=== PATIENT | female | born 1960 | race African-American/Black ===

== ENCOUNTER 2022-02-14 07:32 | Outpatient (CLI) | payer MEDICARE, MEDICAID | END 2022-02-14 07:33 | disposition critical access hospital (66) | LOC: EMS 07:32 | DX: T82.838A Hemorrhage due to vascular prosthetic devices, implants and grafts, initial encounter (principal); I95.9 Hypotension, unspecified; R40.0 Somnolence | CPT/HCPCS: A0425; A0429 ==

== ENCOUNTER 2022-02-14 07:49 | Emergency (ER) | payer MEDICARE, MEDICAID ==
[2022-02-14 08:06] LABS: BASOPHILS % (AUTO) 0.4 %; EOSINOPHILS # (AUTO) 0.1 10^3/uL (0.0-0.7); EOSINOPHILS % (AUTO) 2.1 %; HCT - HEMATOCRIT 30.9 % (37.0-47.0); HGB - HEMOGLOBIN 9.5 g/dL (12.0-16.0); LYMPHOCYTES # (AUTO) 3.6 10^3/uL (1.5-3.5); LYMPHOCYTES % (AUTO) 52.4 %; MEAN CORPUSCULAR HEMOGLOBIN 30.2 pg (27.0-31.0); MEAN CORPUSCULAR HGB CONC 30.7 g/dL (32.0-36.0); MEAN CORPUSCULAR VOLUME 98.1 fL (81.0-99.0); MEAN PLATELET VOLUME 10.4 fL (7.9-10.8); MONOCYTES # (AUTO) 0.4 10^3/uL (0.0-1.0); NEUTROPHILS # (AUTO) 2.6 10^3/uL (1.5-6.6); NEUTROPHILS % (AUTO) 37.6 %; PLT - PLATELET COUNT 248 10^3/uL (130-450); RED BLOOD COUNT 3.15 10^6/uL (4.20-5.40); RED CELL DISTRIBUTION WIDTH 13.2 % (12.0-15.0); WHITE BLOOD COUNT 6.8 x10^3/uL (4.8-10.8)
[2022-02-14 08:19] LABS: ALBUMIN 2.9 g/dL (3.2-5.5); ALBUMIN/GLOBULIN RATIO 0.8 (1.0-2.2); BILIRUBIN,TOTAL 0.9 mg/dL (0.2-1.0); CALCIUM 9.2 mg/dL (8.5-10.3); POTASSIUM 4.3 mmol/L (3.5-5.0); TOTAL PROTEIN 6.4 g/dL (6.7-8.2)
[2022-02-14 08:36] LABS: PT - PROTHROMBIN TIME 11.5 secs (9.9-12.6)
--- NOTE | 2022-02-14 08:49 | ED Physician Documentation ---
History of Present Illness - Stated complaint Stated Complaint: BLEEDING - Chief complaint Chief Complaint: Laceration - History obtained from History obtained from: Patient, Family (Patient's daughter), EMS - Additonal information Additional information: Patient is a 61-year-old, Creole speaking, dialysis patient presenting for evaluation of bleeding from her left upper extremity fistula site. It is unclear as to when the bleeding started. A family member found her unresponsive with blood shooting out.electric spot welder had applied a tourniquet and EMS applied a pressure dressing.Patient was awake and responsive but whenEMS was unable to establish IV or to get a glucose reading. Per her daughter, she is a dialysis patient on Saturday, and Saturday and went yesterday without issue. She has not recently been ill or complaining of anything.She has recently moved to the area from [place] and has a spa director (Lucy Fair) Through [facility]. She has not seen a vascular surgeon. Per her daughter, they were supposed to see a vascular surgeon to have the fistula changed to a graft but have not done so yet. Review of Systems Constitutional: denies: Fever Nose: denies: Congestion Cardiac: denies: Chest pain / pressure Respiratory: denies: Dyspnea GI: reports: Nausea. denies: Abdominal Pain Musculoskeletal: denies: Back pain Neurologic: reports: Generalized weakness, Syncope. denies: Head injury PD PAST MEDICAL HISTORY - Allergies Allergies/Adverse Reactions: Allergies Allergy/AdvReac Type Severity Reaction Status Date / Time cough syrup Allergy Rash Uncoded 02/14/22 08:30 PD ED PE NORMAL - General General: No acute distress, Well developed/nourished - HEENT HEENT: Atraumatic - Neck Neck: Supple, no meningeal sign - Cardiac Cardiac: RRR, Strong equal pulses - Respiratory Respiratory: No respiratory distress, Clear bilaterally - Abdomen Abdomen: Soft, Non tender, Non distended - Derm Derm: Warm and dry - Extremities Extremities: Other (Fistula to left upper extremity, no bruit or thrill, pulsatile bleeding) - Neuro Neuro: No motor deficit Results - Vitals Vitals: Vital Signs - 24 hr 02/14/22 02/14/22 02/14/22 07:55 08:28 09:28 Temperature 36.4 C L Heart Rate 105 H 82 86 Respiratory 22 27 H 23 Rate Blood Pressure 106/71 124/74 135/74 H O2 Saturation 98 99 99 02/14/22 02/14/22 02/14/22 10:00 10:30 11:00 Temperature Heart Rate 84 85 84 Respiratory 19 19 20 Rate Blood Pressure 146/79 H 146/79 H 135/91 H O2 Saturation 97 99 97 Oxygen O2 Source Room air - EKG (time done) 0819 Rate: Rate (enter#) (100) Rhythm: Sinus tachycardia Intervals: No: Prolonged QT (QTC 449) Ischemia: T wave inversion (Lateral leads) Compare to prior EKG: Old EKG unavailable - Labs Labs: Laboratory Tests 02/14/22 02/14/22 02/14/22 07:56 07:56 07:56 WBC 6.8 RBC 3.15 L Hgb 9.5 L Hct 30.9 L MCV 98.1 MCH 30.2 MCHC 30.7 L RDW 13.2 Plt Count 248 MPV 10.4 Neut # (Auto) 2.6 Lymph # (Auto) 3.6 H Howell # (Auto) 0.4 Eos # (Auto) 0.1 Baso # (Auto) 0.0 Absolute Nucleated RBC 0.00 Nucleated RBC % 0.0 PT INR Sodium 138 Potassium 4.3 Chloride 97 L Carbon Dioxide 19 L Anion Gap 22.0 H BUN 47 H Creatinine 9.0 H* Estimated GFR (MDRD) 5 L Glucose 431 H POC Whole Bld Glucose Calcium 9.2 Total Bilirubin 0.9 AST 27 ALT 30 Alkaline Phosphatase 125 H Total Protein 6.4 L Albumin 2.9 L Globulin 3.5 Albumin/Globulin Ratio 0.8 L Blood Type A POSITIVE Blood Type Recheck Antibody Screen NEGATIVE 02/14/22 02/14/22 02/14/22 08:00 08:24 08:24 WBC RBC Hgb Hct MCV MCH MCHC RDW Plt Count MPV Neut # (Auto) Lymph # (Auto) Howell # (Auto) Eos # (Auto) Baso # (Auto) Absolute Nucleated RBC Nucleated RBC % PT 11.5 INR 1.0 Sodium Potassium Chloride Carbon Dioxide Anion Gap BUN Creatinine Estimated GFR (MDRD) Glucose POC Whole Bld Glucose 425 H Calcium Total Bilirubin AST ALT Alkaline Phosphatase Total Protein Albumin Globulin Albumin/Globulin Ratio Blood Type Blood Type Recheck A POSITIVE Antibody Screen 02/14/22 02/14/22 11:01 11:07 WBC RBC Hgb 9.0 L Hct 29.5 L MCV MCH MCHC RDW Plt Count MPV Neut # (Auto) Lymph # (Auto) Howell # (Auto) Eos # (Auto) Baso # (Auto) Absolute Nucleated RBC Nucleated RBC % PT INR Sodium Potassium Chloride Carbon Dioxide Anion Gap BUN Creatinine Estimated GFR (MDRD) Glucose POC Whole Bld Glucose 406 H Calcium Total Bilirubin AST ALT Alkaline Phosphatase Total Protein Albumin Globulin Albumin/Globulin Ratio Blood Type Blood Type Recheck Antibody Screen Procedures - Laceration (location) Left upper extremity fistula Length in cm: 0.5 Wound type: Irregular (Circular macerated area with pulsatile bleeding and oozing), Clean Wound preparation: Betadine Skin layer closure: Size #-0 - enter number (3), Sutures - enter # (3), Other (1 figure 8, 2 simple interrupted) Other: Patient tolerated well, No complications, Neurovascular intact PD MEDICAL DECISION MAKING - ED course Complexity details: reviewed results, re-evaluated patient, d/w patient, d/w family ED course: 844 - Undressed wound; no active bleeding. Dressing reapplied. No thrill/bruit. 0859 - D/W Dr. Fair (Nephro). Patient had been advised to get a fistulogram mon ths ago as her fistula has been problematic at dialysis with high pressures, Bleeding issues. Patient needs to have temporary dialysis catheter for dialysis tomorrow. 919 - Discussed with Chloé Martinez (IR). We do not have capabilities to place temporary dialysis catheters at [facility] due to no fluoroscopy. 1000 - D/W Dr. Fair. She will try calling the vascular lab at [facility] where she is working to see if they are able to accommodate the patient in having a temporary catheter placed today. She will call us back.She would not be able to work on this until her lunch hour. We will keep the patient n.p.o. 1101 - PULP MAKING PLANT OPERATOR Aaliyah from [facility] called back. They have made arrangements for patient to have a fistulogram and/or Tunneled dialysis catheter placement tomorrow. Patient will need to call IR at [facility] to find out the time. Phone number is [phone]. Departure - Departure Disposition: 01 Home, Self Care Clinical Impression: Hyperglycemia Dialysis AV fistula malfunction Qualifiers: Encounter type: initial encounter Qualified Code(s): T82.590A - Other mechanical complication of surgically created arteriovenous fistula, initial encounter Bleeding from dialysis shunt Qualifiers: Encounter type: initial encounter Qualified Code(s): T82.838A - Hemorrhage due to vascular prosthetic devices, implants and grafts, initial encounter Condition: Stable Instructions: ED Shunt Dialysis Fistula Bleeding Follow-Up: LUCY FAIR MD [Physician No Access] - Comments: You were evaluated for a bleeding problem from your fistula site. We were able to control the bleeding with 3 stitches and a dressing. However, I am concerned that the fistula is no longer working. I have spoken to your spa director (Dr. Lucy Fair) and they have arranged for you to have a fistulogram at [facility] tomorrow.You need to call [phone] to find out the time. It is very important to keep the appointment that you are given. Please keep the dressing on Until you are seen for follow-up. If you notice any signs of bl eeding or have any concerns please return to the emergency department. Your blood sugar was elevated and we did give you a small amount of insulin. Please make sure to continue to check your blood sugar today and take your medications as prescribed.
[2022-02-14] MEDS ORDERED: INSULIN NPH HUMAN 100 UNIT/1 ML 10 ML MDV SUBQ STA (09:39)
[2022-02-14] MEDS ORDERED: ONDANSETRON 4 MG/2 ML VIAL IVP STA (10:31)
[2022-02-14 11:05] LABS: HCT - HEMATOCRIT 29.5 % (37.0-47.0)
[2022-02-14] MEDS ORDERED: SODIUM CHLORIDE 0.9% 500 ML IV STA ×2 (12:05→13:01)
[2022-02-14 14:43] LABS: HCT - HEMATOCRIT 27.4 % (37.0-47.0); HGB - HEMOGLOBIN 8.4 g/dL (12.0-16.0)
--- NOTE | 2022-02-14 16:09 | ED Physician Documentation ---
ED Addendum - Addendum Addendum: ED note was signed prematurely in error. Pt Was set up for discharge after arrangements were made for fistulogram tomorrow. However she reported feeling dizzy upon standing. Nurse noted that she is orthostatic. Patient denies chest pain or shortness of breath. She did receive IV fluids with some improvement in her symptoms And was able to sit up (Which she was not able to do prior to the fluid bolus without feeling dizzy) but remained feeling orthostatic when she stood up. Her hemoglobin has gone from 9.5-8.4. I am unclear as to what her baseline is. However she clearly is orthostatic and only feeling symptoms when she stands up. I do think she has symptomatic anemia and would benefit from a blood transfusion. I have consented the patient through her daughter and she is agreeable to receiving 1 unit of blood. 02/14/22 17:49 Receiving transfusion, patient commented to RN that she was having stomach pain and back pain. I used the [employer] record center specialist through [facility] as daughter was unavailable to talk with the patient. She reports having some low back discomfort that seems to be worse when laying in a certain position. She has no significant tenderness on exam. She additionally reports having epigastric tenderness after eating. Will trial Tylenol and Pepcid.Patient otherwise appears to be tolerating blood transfusion well. Plan for discharge if patient is feeling improved after transfusion. Departure - Departure Disposition: 01 Home, Self Care Clinical Impression: Hyperglycemia, Symptomatic anemia Dialysis AV fistula malfunction Qualifiers: Encounter type: initial encounter Qualified Code(s): T82.590A - Other mechanical complication of surgically created arteriovenous fistula, initial encounter Bleeding from dialysis shunt Qualifiers: Encounter type: initial encounter Qualified Code(s): T82.838A - Hemorrhage due to vascular prosthetic devices, implants and grafts, initial encounter Condition: Stable Instructions: ED Shunt Dialysis Fistula Bleeding Follow-Up: LUCY FAIR MD [Physician No Access] - Comments: You were evaluated for a bleeding problem from your fistula site. We were able to control the bleeding with 3 stitches and a dressing. However, I am concerned that the fistula is no longer working. I have spoken to your physical plant employee (Dr. Lucy Fair) and they have arranged for you to have a fistulogram at [facility] tomorrow.You need to call [phone] to find out the time. It is very important to keep the appointment that you are given. Please keep the dressing on Until you are seen for follow-up. If you notice any signs of bleeding or have any concerns please return to the emergency department. Your blood sugar was elevated and we did give you a small amount of insulin. Please make sure to continue to check your blood sugar today and take your medications as prescribed. We also gave you a unit of blood as your blood counts were trending downward and you appear to be symptomatic from this anemia. Discharge Date/Time: 02/14/22 20:28
[2022-02-14] MEDS ORDERED: ACETAMINOPHEN 325 MG TABLET PO STA (17:48)
[2022-02-14] MEDS ORDERED: FAMOTIDINE 20 MG TABLET PO STA (17:49)
[2022-02-14 20:34] VITALS: BP 166/98
== END 2022-02-14 20:28 | disposition home or self-care (01) ==
LOC: ED 07:49
DX: T82.590A Other mechanical complication of surgically created arteriovenous fistula, initial encounter (principal); T82.838A Hemorrhage due to vascular prosthetic devices, implants and grafts, initial encounter; R73.9 Hyperglycemia, unspecified; R00.0 Tachycardia, unspecified; I95.1 Orthostatic hypotension; R10.13 Epigastric pain; D64.9 Anemia, unspecified
CPT/HCPCS: 12001; 36415; 36430; 80053; 85014; 85018; 85025; 85610; 86850; 86900; 86901; 86920; 93005; 96361; 96374; 99283; 99285; A9270; J1815; P9016

== ENCOUNTER 2022-10-05 15:17 | Outpatient (CLI) | payer MEDICARE, MEDICAID | END 2022-10-05 23:59 | disposition critical access hospital (66) | LOC: EMS 15:17 | DX: R56.9 Unspecified convulsions (principal); S09.90XA Unspecified injury of head, initial encounter; R11.10 Vomiting, unspecified; W18.39XA Other fall on same level, initial encounter; Y92.008 Other place in unspecified non-institutional (private) residence as the place of occurrence of the external cause | CPT/HCPCS: A0425; A0427 ==

== ENCOUNTER 2022-10-05 15:33 | Emergency (ER) | payer MEDICARE, MEDICAID ==
[2022-10-05] MEDS ORDERED: LORazepam 2 MG/ML VIAL IVP STA ×2 (15:37→16:08)
--- NOTE | 2022-10-05 15:40 | ED Physician Documentation ---
History of Present Illness - Stated complaint Stated Complaint: SEIZURE/HEAD INJ - Chief complaint Chief Complaint: Neuro - History obtained from History obtained from: EMS - History of Present Illness Timing: Today - Additonal information Additional information: Patient is a 62-year-old female with a history of diabetes and CHF. She is on dialysis. Has a left-sided AV fistula. EMS states that the family heard her fall at home and found her seizing on the floor. She has been seizing for approximately 40 minutes. EMS gave Versed 2 mg IM approximately 15 minutes ago. No other history is available. EMS states the patient is not on blood thinners. No prior history of seizures the EMS is aware of The patient has her usual dialysis care at [facility] in [place]. Her daughter arrived in the emergency department is able to give more history. She states that since last night her mother has been shaking. The altered mental status apparently occurred today just prior to EMS being called. Patient had dialysis yesterday. She is scheduled again tomorrow. The daughter states that the patient has not had any cough or congestion. No vomiting or diarrhea. She states that the patient does still make urine. Review of Systems Unable to obtain: Unresponsive PD PAST MEDICAL HISTORY - Past Medical History Past Medical History: Yes Cardiovascular: Congestive heart failure, Hypertension Endocrine/Autoimmune: Type 2 diabetes - Past Surgical History Past Surgical History: Yes Other past surgical history: AV fistula - Present Medications Home Medications: Ambulatory Orders Medication Instructions Recorded Confirmed NIFEdipine [Procardia Xl] 30 mg PO BID 02/14/22 02/14/22 cloNIDine [Catapres] 0.3 mg PO BID 02/14/22 02/14/22 hydrALAZINE [Apresoline] 25 mg PO BID 02/14/22 02/14/22 - Allergies Allergies/Adverse Reactions: Allergies Allergy/AdvReac Type Severity Reaction Status Date / Time cough syrup Allergy Rash Uncoded 10/05/22 15:38 - Living Situation Living Situation: reports: With family Living Arrangement: reports: At home - Social History Does the pt have substance abuse?: No - Family History Family history: reports: Non contributory PD ED PE NORMAL - Vitals Vital signs reviewed: Yes - General General: No acute distress, Well developed/nourished, Other (Drowsy, arousable but shaking) - HEENT HEENT: PERRL, Other (right frontal scalp hematoma) - Neck Neck: Supple, no meningeal sign, No bony TTP - Cardiac Cardiac: RRR, Other (port in R upper chest) - Respiratory Respiratory: Other (mild rhonchi B) - Abdomen Abdomen: Soft, Non tender, Non distended - Back Back: No spinal TTP - Derm Derm: Warm and dry - Extremities Extremities: No edema - Neuro Eye Opening: To Pain Motor: Withdraws to Pain Verbal: None GCS Score: 7 Results - Vitals Vitals: Vital Signs - 24 hr 10/05/22 10/05/22 10/05/22 15:38 15:44 16:14 Temperature 36.5 C 36.5 C Heart Rate 94 96 88 Respiratory 14 24 24 Rate Blood Pressure 160/100 H 180/110 H 200/110 H O2 Saturation 100 100 96 If not protocol 4 4 : Oxygen Flow, liters/minute 10/05/22 10/05/22 10/05/22 16:30 17:00 17:30 Temperature 38.8 C H Heart Rate 97 96 88 Respiratory 24 24 24 Rate Blood Pressure 200/120 H 160/120 H 200/110 H O2 Saturation 98 98 98 If not protocol 4 4 4 : Oxygen Flow, liters/minute 10/05/22 10/05/22 10/05/22 18:00 18:30 19:00 Temperature Heart Rate 88 100 120 H Respiratory 24 28 H 20 Rate Blood Pressure 200/120 H 200/110 H 200/110 H O2 Saturation 99 99 98 If not protocol 4 4 4 : Oxygen Flow, liters/minute 10/05/22 10/05/22 10/05/22 19:30 20:00 20:30 Temperature Heart Rate 100 110 H 130 H Respiratory 28 H 24 28 H Rate Blood Pressure 200/100 H 170/88 H 209/116 H O2 Saturation 98 97 97 If not protocol 4 4 4 : Oxygen Flow, liters/minute 10/05/22 10/05/22 10/05/22 21:00 21:30 22:00 Temperature 38.8 C H Heart Rate 137 H 138 H 138 H Respiratory 37 H 35 H 33 H Rate Blood Pressure 213/114 H 207/122 H 218/125 H O2 Saturation 98 97 96 If not protocol 4 4 : Oxygen Flow, liters/minute 10/05/22 22:17 Temperature Heart Rate 114 H Respiratory 21 Rate Blood Pressure 179/98 H O2 Saturation 97 If not protocol 4 : Oxygen Flow, liters/minute Oxygen O2 Source Nasal cannula Oxygen Flow Rate 4 - Labs Labs: Microbiology 10/05/22 17:55 CSF Culture - Preliminary Cerebral Spinal Fluid Laboratory Tests 10/05/22 10/05/22 10/05/22 15:45 15:45 15:45 WBC 12.2 H RBC 4.49 Hgb 13.2 Hct 42.1 MCV 93.8 MCH 29.4 MCHC 31.4 L RDW 14.8 Plt Count 201 MPV 9.0 Neut # (Auto) 10.8 H Lymph # (Auto) 0.5 L Travis # (Auto) 0.8 Eos # (Auto) 0.0 Baso # (Auto) 0.0 Absolute Nucleated RBC 0.00 Nucleated RBC % 0.0 PT 10.5 INR 0.9 APTT 26.6 Sodium 140 Potassium 5.1 H Chloride 95 L Carbon Dioxide 26 Anion Gap 19.0 H BUN 28 H Creatinine 9.0 H* Estimated GFR (MDRD) 5 L Glucose 242 H POC Whole Bld Glucose Lactic Acid Calcium 9.7 Total Bilirubin 0.9 AST 31 ALT 19 Alkaline Phosphatase 116 Total Protein 8.5 H Albumin 4.0 Globulin 4.5 H Albumin/Globulin Ratio 0.9 L Lipase 54 H Urine Color Urine Clarity Urine pH Ur Specific [place] Urine Protein Urine Glucose (UA) Urine Ketones Urine Occult Blood Urine Nitrite Urine Bilirubin Urine Urobilinogen Ur Leukocyte Esterase Urine RBC Urine WBC Ur Squamous Epith Cells Urine Bacteria Ur Microscopic Review Urine Culture Comments CSF Color CSF Clarity Xanthrochromic CSF WBC CSF RBC CSF Cell Count Tube # CSF Neutrophils CSF Lymphocytes CSF Monocytes CSF Glucose CSF Total Protein Nasal Adenovirus (PCR) Nasal B. parapertussis DNA (PCR) Nasal Coronavir 229E PCR Nasal Coronavir HKU1 PCR Nasal Coronavir NL63 PCR Nasal Coronavir OC43 PCR Nasal Enterovir/Rhinovir PCR Nasal Influenza B PCR Nasal Influenza A PCR Nasal Parainfluen 1 PCR Nasal Parainfluen 2 PCR Nasal Parainfluen 3 PCR Nasal Parainfluen 4 PCR Nasal RSV (PCR) Nasal B.pertussis DNA PCR Nasal C.pneumoniae (PCR) Gian Human Metapneumo PCR Nasal M.pneumoniae (PCR) Nasal SARS-CoV-2 (PCR) Salicylates Urine Opiates Screen Ur Oxycodone Screen Urine Methadone Screen Ur Propoxyphene Screen Acetaminophen Ur Barbiturates Screen Ur Tricyclics Screen Ur Phencyclidine Scrn Ur Amphetamine Screen U Methamphetamines Scrn U Benzodiazepines Scrn Urine Cocaine Screen U Cannabinoids Screen Ethyl Alcohol 10/05/22 10/05/22 10/05/22 15:45 15:51 16:55 WBC RBC Hgb Hct MCV MCH MCHC RDW Plt Count MPV Neut # (Auto) Lymph # (Auto) Travis # (Auto) Eos # (Auto) Baso # (Auto) Absolute Nucleated RBC Nucleated RBC % PT INR APTT Sodium Potassium Chloride Carbon Dioxide Anion Gap BUN Creatinine Estimated GFR (MDRD) Glucose POC Whole Bld Glucose 241 H Lactic Acid Calcium Total Bilirubin AST ALT Alkaline Phosphatase Total Protein Albumin Globulin Albumin/Globulin Ratio Lipase Urine Color YELLOW Urine Clarity CLEAR Urine pH 8.5 H Ur Specific [place] 1.020 Urine Protein >=300 H Urine Glucose (UA) NEGATIVE Urine Ketones NEGATIVE Urine Occult Blood SMALL H Urine Nitrite NEGATIVE Urine Bilirubin NEGATIVE Urine Urobilinogen 0.2 (NORMAL) Ur Leukocyte Esterase NEGATIVE Urine RBC 0-5 Urine WBC 0-3 Ur Squamous Epith Cells RARE Squamous Urine Bacteria Rare Ur Microscopic Review INDICATED Urine Culture Comments NOT INDICATED CSF Color CSF Clarity Xanthrochromic CSF WBC CSF RBC CSF Cell Count Tube # CSF Neutrophils CSF Lymphocytes CSF Monocytes CSF Glucose CSF Total Protein Nasal Adenovirus (PCR) Nasal B. parapertussis DNA (PCR) Nasal Coronavir 229E PCR Nasal Coronavir HKU1 PCR Nasal Coronavir NL63 PCR Nasal Coronavir OC43 PCR Nasal Enterovir/Rhinovir PCR Nasal Influenza B PCR Nasal Influenza A PCR Nasal Parainfluen 1 PCR Nasal Parainfluen 2 PCR Nasal Parainfluen 3 PCR Nasal Parainfluen 4 PCR Nasal RSV (PCR) Nasal B.pertussis DNA PCR Nasal C.pneumoniae (PCR) Gian Human Metapneumo PCR Nasal M.pneumoniae (PCR) Nasal SARS-CoV-2 (PCR) Salicylates < 6.0 Urine Opiates Screen NEGATIVE Ur Oxycodone Screen NEGATIVE Urine Methadone Screen NEGATIVE Ur Propoxyphene Screen NEGATIVE Acetaminophen < 10 L Ur Barbiturates Screen NEGATIVE Ur Tricyclics Screen NEGATIVE Ur Phencyclidine Scrn NEGATIVE Ur Amphetamine Screen NEGATIVE U Methamphetamines Scrn NEGATIVE U Benzodiazepines Scrn NEGATIVE Urine Cocaine Screen NEGATIVE U Cannabinoids Screen NEGATIVE Ethyl Alcohol < 5.0 10/05/22 10/05/22 10/05/22 17:15 17:19 17:55 WBC RBC Hgb Hct MCV MCH MCHC RDW Plt Count MPV Neut # (Auto) Lymph # (Auto) Travis # (Auto) Eos # (Auto) Baso # (Auto) Absolute Nucleated RBC Nucleated RBC % PT INR APTT Sodium Potassium Chloride Carbon Dioxide Anion Gap BUN Creatinine Estimated GFR (MDRD) Glucose POC Whole Bld Glucose Lactic Acid 4.3 H* Calcium Total Bilirubin AST ALT Alkaline Phosphatase Total Protein Albumin Globulin Albumin/Globulin Ratio Lipase Urine Color Urine Clarity Urine pH Ur Specific [place] Urine Protein Urine Glucose (UA) Urine Ketones Urine Occult Blood Urine Nitrite Urine Bilirubin Urine Urobilinogen Ur Leukocyte Esterase Urine RBC Urine WBC Ur Squamous Epith Cells Urine Bacteria Ur Microscopic Review Urine Culture Comments CSF Color RED CSF Clarity HAZY Xanthrochromic ABSENT CSF WBC 9 H CSF RBC 3048 H CSF Cell Count Tube # CSF TUBE# 4 CSF Neutrophils 84 H CSF Lymphocytes 9 L CSF Monocytes 7 L CSF Glucose 126 H CSF Total Protein 200 H Nasal Adenovirus (PCR) NOT DETECTED Nasal B. parapertussis DNA (PCR) NOT DETECTED Nasal Coronavir 229E PCR NOT DETECTED Nasal Coronavir HKU1 PCR NOT DETECTED Nasal Coronavir NL63 PCR NOT DETECTED Nasal Coronavir OC43 PCR NOT DETECTED Nasal Enterovir/Rhinovir PCR NOT DETECTED Nasal Influenza B PCR NOT DETECTED Nasal Influenza A PCR NOT DETECTED Nasal Parainfluen 1 PCR NOT DETECTED Nasal Parainfluen 2 PCR NOT DETECTED Nasal Parainfluen 3 PCR NOT DETECTED Nasal Parainfluen 4 PCR NOT DETECTED Nasal RSV (PCR) NOT DETECTED Nasal B.pertussis DNA PCR NOT DETECTED Nasal C.pneumoniae (PCR) NOT DETECTED Gian Human Metapneumo PCR NOT DETECTED Nasal M.pneumoniae (PCR) NOT DETECTED Nasal SARS-CoV-2 (PCR) NOT DETECTED Salicylates Urine Opiates Screen Ur Oxycodone Screen Urine Methadone Screen Ur Propoxyphene Screen Acetaminophen Ur Barbiturates Screen Ur Tricyclics Screen Ur Phencyclidine Scrn Ur Amphetamine Screen U Methamphetamines Scrn U Benzodiazepines Scrn Urine Cocaine Screen U Cannabinoids Screen Ethyl Alcohol - Rads (name of study) ct head Relevant Findings:: Final report received, See rad report ct c spine Relevant Findings:: Final report received, See rad report cxr Relevant Findings:: Final report received, See rad report Procedures - Lumbar Puncture - Major Position: Laying left side Location: L4-L5, Midline approach Anesthesia: Local lidocaine CSF: Bloody but clearing Other: Sterile prep and drape, Patient tolerated well, No complications PD Medical Decision Making - ED course Complexity details: reviewed results, re-evaluated patient, considered differential, d/w family ED course: 62-year-old female with initial complaint of fall, head injury and possible seizure with status epilepticus. Was given 2 mg of Versed by EMS. When she arrived here another 2 mg of Ativan were given, 1 g of Keppra, she continued to be shaking so another 2 mg of Ativan were given. When the patient was being undressed for a catheterized UA, the nurse noticed that the patient felt very warm, so a rectal temperature was checked, found to be febrile. At this point no clear source of infection, and daughter arrived to the emergency department. We discussed risk and benefits of lumbar puncture. Lumbar puncture was perf ormed, it was initially bloody but did clear. Patient had some tachycardia as well. She is moving purposefully. She is still nonverbal but does speak [place] Creole. Unclear if she was actually having seizures or if she was having rigors from her infection. She has her AV fistula in the left arm and a dialysis catheter in the right upper chest. The patient's daughter states that they had talked about removing the dialysis catheter in the right upper chest but have not done so yet. They are using the fistula for dialysis. Initial transfer attempts were made to [facility] in [place], but they do not have any beds available. We will continue searching the region for an available bed. 2049 - Spoke with [facility]. They will check on their bed status for potential transfer. Call back from [facility] at 2130. No beds are available at [facility] or [facility]. No beds are available at [facility]. No beds available at [facility]. [facility] in [place] is considering. We will contact the [facility] as well. We will continue to try to transfer the patient. Patient is currently sleeping. No further shaking at 2130 There are no beds available at the time of signout. Patient signed out to Dr. Quinn for further care. This document was made in part using voice recognition software. While efforts are made to proofread this document, sound alike and grammatical errors may occur. - Sepsis Event Sepsis Onset Date: 10/05/22 Sepsis Onset Time: 20:06 Current Stage of Sepsis: Sepsis Initial Hypotension: Not hypotensive Possible source of Sepsis: Implantable device (AV fistula), Meningitis Mental/Cognitive Status: Lethargic Reason for not giving 30ml/kg crystalloid fluids: Dialysis patient Capillary refill: Less than 2 seconds Peripheral Pulse Strength: 2+ Slightly Diminished Peripheral Pulse Location: Radial Bedside ultrasound performed: No Departure - Departure Disposition: 02 Transfer Acute Care Hosp Clinical Impression: Seizure Fever Qualifiers: Fever type: unspecified Qualified Code(s): R50.9 - Fever, unspecified Altered mental status Qualifiers: Altered mental status type: somnolence Qualified Code(s): R40.0 - Somnolence Sepsis Qualifiers: Sepsis type: sepsis due to unspecified organism Sepsis acute organ dysfunction status: unspecified Qualified Code(s): A41.9 - Sepsis, unspecified organism Closed head injury Qualifiers: Encounter type: initial encounter Qualified Code(s): S09.90XA - Unspecified injury of head, initial encounter Condition: Stable
[2022-10-05 15:51] LABS: BASOPHILS % (AUTO) 0.2 %; EOSINOPHILS % (AUTO) 0.1 %; HCT - HEMATOCRIT 42.1 % (37.0-47.0); HGB - HEMOGLOBIN 13.2 g/dL (12.0-16.0); LYMPHOCYTES # (AUTO) 0.5 10^3/uL (1.5-3.5); LYMPHOCYTES % (AUTO) 4.3 %; MEAN CORPUSCULAR HEMOGLOBIN 29.4 pg (27.0-31.0); MEAN CORPUSCULAR HGB CONC 31.4 g/dL (32.0-36.0); MEAN CORPUSCULAR VOLUME 93.8 fL (81.0-99.0); MONOCYTES # (AUTO) 0.8 10^3/uL (0.0-1.0); MONOCYTES % (AUTO) 6.8 %; NEUTROPHILS # (AUTO) 10.8 10^3/uL (1.5-6.6); NEUTROPHILS % (AUTO) 88.3 %; PLT - PLATELET COUNT 201 10^3/uL (130-450); RED BLOOD COUNT 4.49 10^6/uL (4.20-5.40); RED CELL DISTRIBUTION WIDTH 14.8 % (12.0-15.0); WHITE BLOOD COUNT 12.2 x10^3/uL (4.8-10.8)
[2022-10-05 16:02] LABS: INR 0.9 (0.8-1.2); PT - PROTHROMBIN TIME 10.5 secs (9.9-12.6)
[2022-10-05 16:07] LABS: ALBUMIN/GLOBULIN RATIO 0.9 (1.0-2.2); BILIRUBIN,TOTAL 0.9 mg/dL (0.2-1.0); CALCIUM 9.7 mg/dL (8.5-10.3); POTASSIUM 5.1 mmol/L (3.5-5.0); TOTAL PROTEIN 8.5 g/dL (6.7-8.2)
[2022-10-05] MEDS ORDERED: levETIRAcetam 500 MG/5 ML VIAL IVP STA (16:07)
[2022-10-05 16:10] LABS: PARTIAL THROMBOPLASTIN TIME 26.6 secs (24.9-33.3)
[2022-10-05 16:43] LABS: ACETAMINOPHEN < 10 ug/mL (10-30); ETOH - ETHANOL < 5.0 mg/dL; SALICYLATE < 6.0 mg/dL
--- NOTE | 2022-10-05 16:51 | CT Report ---
PROCEDURE: HEAD WO INDICATIONS: fall, head injury, seizure, aloc TECHNIQUE: Noncontrast 4.5 mm thick angled axial sections acquired from the foramen magnum to the vertex. For r adiation dose reduction, the following was used: automated exposure control, adjustment of mA and/or kV according to patient size. COMPARISON: None FINDINGS: Image quality: Excellent. CSF spaces: Basal cisterns are patent. No extra-axial fluid collections. The ventricles are symmet [place] in size and shape. Brain: No intracranial bleeds or masses. There is cerebral volume loss for age, with resultant vent ricular and sulcal prominence. There are periventricular and deep white matter chronic small vessel ischemic changes. There is intracranial internal carotid artery atherosclerosis. Skull and face: Large right frontal scalp hematoma is seen. No gross acute skull fracture. Sinuses: Retention cyst in right maxillary sinus is seen. IMPRESSION: 1. No CT evidence of acute intracranial abnormality. 2. Right frontal scalp hematoma and swelling. No gross acute skull fracture. Reviewed by: Brandon Naidu MD on 10/05/2022 4:49 PM PDT Approved by: Brandon Naidu MD on 10/05/2022 4:49 PM PDT Station ID: [id number]
--- NOTE | 2022-10-05 16:53 | CT Report ---
PROCEDURE: CERVICAL SPINE WO INDICATIONS: fall, head injury, seizure, aloc TECHNIQUE: Noncontrast 3 mm thick sections acquired from the skull base to the T4 level. Sagittal and coronal r eformats were then constructed. For radiation dose reduction, the following was used: automated exp osure control, adjustment of mA and/or kV according to patient size. COMPARISON: None. FINDINGS: Image quality: Excellent. Bones: No fractures or dislocations. Loss of disc height, degenerative endplate changes and bilater al facet hypertrophic changes are noted at C4-5 level causing moderate central canal stenosis and mil d to moderate bilateral neural foraminal narrowing. Mild degenerative endplate changes also seen at C 3-4 and C5-6 levels. Visualized superior ribs are intact. Soft tissues: Prevertebral soft tissues are normal in thickness. No paravertebral hematomas. No ap ical pneumothoraces. Enlarged thyroid gland is seen with suggestion of partially calcified left thyr oid nodule. IMPRESSION: 1. No acute cervical spine fracture or dislocation. 2. Mild to moderate degenerative disc disease throughout cervical spine as above. Reviewed by: Brandon Naidu MD on 10/05/2022 4:52 PM PDT Approved by: Brandon Naidu MD on 10/05/2022 4:52 PM PDT Station ID: [id number]
[2022-10-05 17:00] LABS: MUDS CUTOFF CONCENTRATIONS CUTOFF CONC BELOW:
[2022-10-05 17:08] LABS: BILIRUBIN,URINE NEGATIVE (NEGATIVE); GLUCOSE, URINE (UA) NEGATIVE (NEGATIVE); KETONES,URINE (UA) NEGATIVE (NEGATIVE); LEUKOCYTE ESTERASE, URINE NEGATIVE (NEGATIVE); NITRITE,URINE NEGATIVE (NEGATIVE); OCCULT BLOOD,URINE SMALL (NEGATIVE); PH,URINE 8.5 PH (5.0-7.5); PROTEIN,URINE >=300 mg/dL (NEGATIVE); UROBILINOGEN,URINE 0.2 (NORMAL) E.U./dL (NORMAL)
[2022-10-05 17:09] LABS: CLARITY,URINE CLEAR (CLEAR)
[2022-10-05 17:18] LABS: BACTERIA,URINE Rare /HPF (None Seen); RBC,URINE 0-5 /HPF (0-5); SQUAMOUS EPITHELIAL CELL,UR RARE Squamous (<= Few); WBC,URINE 0-3 /HPF (0-5)
[2022-10-05 17:20] LABS: AMPHETAMINE SCREEN,URINE NEGATIVE (NEGATIVE); BARBITURATE SCREEN,UR NEGATIVE (NEGATIVE); BENZODIAZEPINES SCREEN, URINE NEGATIVE (NEGATIVE); COCAINE SCREEN URINE NEGATIVE (NEGATIVE); METHADONE SCREEN, URINE NEGATIVE (NEGATIVE); METHAMPHETAMINES SCREEN, URINE NEGATIVE (NEGATIVE); OPIATE SCREEN, URINE NEGATIVE (NEGATIVE); OXYCODONE SCREEN, URINE NEGATIVE (NEGATIVE); PROPOXYPHENE SCREEN, URINE NEGATIVE (NEGATIVE); THC CANNABINOID SCREEN, URINE NEGATIVE (NEGATIVE); TRICYCLIC ANTIDEPRESSANT,URINE NEGATIVE (NEGATIVE)
[2022-10-05] MEDS ORDERED: ACETAMINOPHEN 1,000 MG/100 ML 1,000 MG/100 ML BAG IV ONE (17:25)
[2022-10-05] MEDS ORDERED: SODIUM CHLORIDE 0.9% 1,000 ML IV STA ×2 (18:00→19:33)
[2022-10-05] MEDS ORDERED: CEFEPIME 2 GM in SODIUM CHLORIDE 0.9% MINIBAG 100 ML IV STA (18:03)
[2022-10-05 18:12] LABS: B. PARAPERTUSSIS- RESP PCR PAN NOT DETECTED; B. PERTUSSIS- RESP PCR PANEL NOT DETECTED; C. PNEUMONIAE- RESP PCR PANEL NOT DETECTED; CORONAVIRUS 229E-RESP PCR NOT DETECTED; CORONAVIRUS HKU1-RESP PCR NOT DETECTED; CORONAVIRUS NL63-RESP PCR NOT DETECTED; CORONAVIRUS OC43-RESP PCR NOT DETECTED; HUMAN METAPNEUMOVIRUS NOT DETECTED; INFLUENZA A- RESP PCR PANEL NOT DETECTED; INFLUENZA B - RESP PCR PANEL NOT DETECTED; M. PNEUMONIAE- RESP PCR PANEL NOT DETECTED; PARAINFLUENZA VIRUS 1 NOT DETECTED; PARAINFLUENZA VIRUS 2 NOT DETECTED; PARAINFLUENZA VIRUS 3 NOT DETECTED; PARAINFLUENZA VIRUS 4 NOT DETECTED; RHINOVIRUS/ENTEROVIRUS NOT DETECTED; RSV- RESP PCR PANEL NOT DETECTED; SARS-CoV-2 -RESP PCR PANEL NOT DETECTED
[2022-10-05 18:24] LABS: CSF - GLUCOSE 126 mg/dL (45-70); TOTAL PROTEIN,CSF 200 mg/dL (15-45)
[2022-10-05 18:41] LABS: CLARITY,CSF HAZY (CLEAR); COLOR,CSF RED (COLORLESS); CSF TUBE # CSF TUBE# 4; CSF XANTHOCHROMIA ABSENT (ABSENT); WHITE BLOOD CELL,CSF 9 /mm^3 (0-5)
[2022-10-05 18:54] LABS: RED BLOOD CELL,CSF 3048 /mm^3 (0-1)
[2022-10-05] MEDS ORDERED: ACYCLOVIR INJ 500 MG in SODIUM CHLORIDE 0.9% 250 ML IV STA (18:58)
[2022-10-05 19:17] LABS: LYMPHOCYTES,CSF 9 % (40-80); MONOCYTES,CSF 7 % (15-45); NEUTROPHILS,CSF 84 % (0-6)
[2022-10-05] MEDS ORDERED: diltiaZEM INJ 5 MG/ML VIAL IVP STA ×2 (19:55→21:51)
--- NOTE | 2022-10-05 20:41 | XRAY Report ---
PROCEDURE: Chest 1 View X-Ray INDICATIONS: fever TECHNIQUE: One view of the chest was acquired. COMPARISON: None. FINDINGS: Surgical changes and devices: Right-sided central venous catheter is in place with the distal tip pr ojecting in the region of the lower cavoatrial junction. Lungs and pleura: Diffuse interstitial prominence. Mild central vascular congestion. No focal consol idation. Streaky bibasilar opacities. No pneumothorax. No substantial pleural effusion seen. Mediastinum: Cardiomediastinal contours appear normal. Mild cardiomegaly. Bones and chest wall: No suspicious bony lesions. Overlying soft tissues appear unremarkable. IMPRESSION: Mild cardiomegaly with findings suggestive of mild pulmonary edema. However, an infectious or inflamm atory process not excluded. No focal consolidation seen. Reviewed by: Jerson Álvarez MD on 10/05/2022 8:40 PM PDT Approved by: Jerson Álvarez MD on 10/05/2022 8:40 PM PDT Station ID: [id number]
[2022-10-05] MEDS ORDERED: diltiaZEM INJ 125 MG in DEXTROSE 5% 100 ML IV STA (22:27)
[2022-10-05] MEDS ORDERED: diltiaZEM INJ 5 MG/ML VIAL ONE (22:52)
[2022-10-05] MEDS ORDERED: iohexoL-300 100 ML VIAL ONE (23:10)
[2022-10-06] MEDS ORDERED: ACETAMINOPHEN 650 MG SUPP PR STA (00:16)
[2022-10-06] MEDS ORDERED: iohexoL-300 100 ML VIAL IVP ONE (02:14)
[2022-10-06] MEDS ORDERED: LABETALOL VIAL 200 MG in SODIUM CHLORIDE 0.9% 160 ML IV STA (03:00)
--- NOTE | 2022-10-06 03:04 | CT Report ---
PROCEDURE: ANGIO CHEST W/WO INDICATIONS: tachycardia, altered CONTRAST: 100 ML OMNI 300 TECHNIQUE: After the administration of intravenous contrast, 2 mm axial images were acquired from the pulmonary apices to the posterior costophrenic angles during the arterial phase. In addition, 1 mm lung kernel and 5 mm soft tissue kernel reconstructions were performed. 3-dimensional coronal oblique maximum int ensity projection (MIP) reformats, 8 mm axial MIP, and 5 mm coronal and sagittal MPR reformats were t hen performed through the thorax. For radiation dose reduction, the following was used: automated exp osure control, adjustment of mA and/or kV according to patient size. COMPARISON: Chest x-ray 10/05/2022. FINDINGS: Image quality: There is motion artifact limiting evaluation. Pulmonary arteries: Pulmonary arteries demonstrate no intraluminal filling defects to suggest centra l pulmonary embolism. Evaluation of subsegmental pulmonary arteries is limited by motion artifact. Lower Neck: No lymphadenopathy by size criteria. Thyroid: Visualized thyroid demonstrates no discrete nodules. Axillae: No lymphadenopathy by size criteria. Chest Wall: Unremarkable. Bones: Visualized osseous structures demonstrate no suspicious lesions. Lungs and Airways: There is motion artifact limiting evaluation. There are patchy areas of consolida tion within the lungs bilaterally most prominent in the right upper lobe. There are also indistinct g round glass opacities bilaterally which may reflect pulmonary edema. Atelectasis also present. The trachea and central airways are patent. Pleura: No pneumothorax.There are small bilateral pleural effusions with associated mild compressive atelectasis. Heart: Heart size is normal. No pericardial effusion. Thoracic Vessels: The thoracic aorta is normal in size. Mediastinum and Arlene: There are mildly enlarged mediastinal and hilar lymph nodes including a represe ntative right hilar node measuring up to 1.2 cm in short axis. The findings are nonspecific and may b e reactive. Esophagus: No wall thickening. No hiatal hernia. Abdomen: Visualized upper abdomen demonstrates nonspecific wall thickening of the partially visualiz ed gallbladder. There is bilateral perinephric stranding. IMPRESSION: 1. No evidence of central pulmonary embolism, with evaluation of subsegmental pulmonary arteries limi lei by motion artifact. 2. Patchy areas of consolidation bilaterally most prominent within the perihilar region of the right upper lobe. The findings are nonspecific but suggestive of multifocal pneumonia. 3. Small bilateral pleural effusions with associated compressive atelectasis. 4. Indistinct groundglass opacities bilaterally may reflect pulmonary edema. 5. Wall thickening of the partially visualized gallbladder. If there is clinical suspicion for cholec ystitis, further evaluation may obtained with ultrasound. Reviewed by: Gomez Cooney MD on 10/06/2022 3:03 AM PDT Approved by: Gomez Cooney MD on 10/06/2022 3:03 AM PDT Station ID: [id number]
[2022-10-06] MEDS ORDERED: NITROGLYCERIN 2% PASTE TOP STA (03:15)
[2022-10-06] MEDS ORDERED: LABETALOL 5 MG/1 ML 20 ML MDV ONE (03:28)
[2022-10-06] MEDS ORDERED: LABETALOL 20 MG/4 ML SYRINGE IVP STA (03:49)
[2022-10-06] MEDS ORDERED: ACETAMINOPHEN 1,000 MG/100 ML 1,000 MG/100 ML BAG IV PRN (07:49)
[2022-10-06] MEDS ORDERED: VANCOMYCIN INJ 1.25 GM in SODIUM CHLORIDE 0.9% 250 ML IV STA (07:50)
[2022-10-06] MEDS ORDERED: VANCOMYCIN 1 GM VIAL ONE (08:19)
--- NOTE | 2022-10-06 08:47 | XRAY Report ---
PROCEDURE: Chest 1 View X-Ray INDICATIONS: fever/pneumonia? TECHNIQUE: One view of the chest was acquired. COMPARISON: CT pulmonary angiogram 10/06/2022. CXR 10/05/2022. FINDINGS: Surgical changes and devices: Right dual lumen central venous catheter with the tip at the right atr ium. Left axillary stent. Lungs and pleura: No pneumothorax. Trace pleural effusions seen on CT earlier today are not well thiago reciated. Bilateral hazy opacity, similar. Mediastinum: Mediastinal contours appear unchanged. Heart size is prominent. Bones and chest wall: No suspicious bony lesions. Overlying soft tissues appear unremarkable. IMPRESSION: Similar bilateral hazy opacity. Suspect fluid overload/CHF. Difficult to exclude underlying infectiou s/inflammatory etiology. Trace pleural effusion seen on CT earlier today are not well appreciated. Reviewed by: Kennedy Espinal MD on 10/06/2022 8:45 AM PDT Approved by: Kennedy Espinal MD on 10/06/2022 8:45 AM PDT Station ID: [id number]
--- NOTE | 2022-10-06 09:33 | ED Physician Documentation ---
ED Addendum - Addendum Addendum: 10/06/22 09:28 I received turnover of care on this patient from Dr. Lyles at the end of his shift. Please see Dr. Lyles's note for thorough history and physical. This is a complicated patient who presents with altered mental status. She is a dialysis patient and is next due for dialysis on October 06. Reportedly, the patient was exhibiting shaking last night prior to ED arrival, possible seizure activity. The patient also sustained a fall and struck her head, with the shaking activity occurring both before and after this fall. She is also found to be febrile in the emergency department. Test performed included lumbar puncture, With the results mildly abnormal in a pattern that would be most consistent with viral meningitis. Patient is given IV acyclovir as well as IV cefepime. At the time of signout from Dr. Lyles, the patient is pending a CTA of the chest. The patient also is exhibiting persistent tachycardia with heart rates in the 120s to 140s range despite diltiazem drip.She also has consistently and significantly elevated blood pressures, with systolic blood pressures ranging mostly in the 210s to 220s range. The CT a of the chest, per radiology reading, shows "no evidence of central pulmonary embolism", "patchy areas of consolidation bilaterally most prominent within the perihilar region of the right upper lobe. The findings are nonspecific but suggestive of multifocal pneumonia". 10/06/22 09:33 Dr. Lyles had already made significant effort to attempt to have patient transferred to a another hospital, higher level of care. Unfortunately, all the hospitals that were contacted have no available beds appropriate for this patient. 10/06/22 09:37 I was contacted by the hospitalist on duty at [facility]. She recommends that I discussed this case with their nutritional services cook before she (the hospitalist) can accept the patient. I was subsequently put in touch with Dr. Bergeron, the nutritional services cook at [facility]. Dr. Bergeron says the patient sounds appropriate for [facility] and recommends that a contact hospitalist back for admission. In the interim, due to ongoing tachycardia and high blood pressures as noted above, I discontinued the diltiazem drip and ordered a labetalol drip. Unexpectedly, the patient's heart rate rapidly improved with the discontinuation of the diltiazem but prior to initiation of the labetalol drip. Her heart rate dropped into the 90s range, appears to be atrial fibrillation on the monitor and this is confirmed by EKG. Her blood pressures remained elevated as above, and thus she is given 20 mg labetalol IV push. I subsequently heard back from the hospitalist at [facility] and was told that they would be back in touch once a bed was secured. Unfortunately, after a few more hours, I did not hear back from [facility]. The [facility] contacted staff at [facility] and was told that there are no beds available and thus they cannot accommodate this patient. The care of this [facility] (Dr. Fairbanks) at the end of my shift, as efforts to find a bed available at an appropriate facility continue.
[2022-10-06] MEDS ORDERED: lidocaine 1% 20 ML MDV ONE (10:47)
[2022-10-06] MEDS ORDERED: NITROGLYCERIN 50 MG/250 ML 50 MG/250 ML BOTTLE IV STA (11:09)
[2022-10-06] MEDS ORDERED: MORPHINE 2 MG/ML CARPUJECT IVP STA (11:13)
[2022-10-06 11:23] LABS: BASOPHILS % (AUTO) 0.3 %; HCT - HEMATOCRIT 41.7 % (37.0-47.0); HGB - HEMOGLOBIN 13.4 g/dL (12.0-16.0); LYMPHOCYTES # (AUTO) 1.5 10^3/uL (1.5-3.5); LYMPHOCYTES % (AUTO) 12.5 %; MEAN CORPUSCULAR HEMOGLOBIN 29.3 pg (27.0-31.0); MEAN CORPUSCULAR HGB CONC 32.1 g/dL (32.0-36.0); MEAN PLATELET VOLUME 10.1 fL (7.9-10.8); MONOCYTES # (AUTO) 1.1 10^3/uL (0.0-1.0); MONOCYTES % (AUTO) 9.5 %; NEUTROPHILS # (AUTO) 9.2 10^3/uL (1.5-6.6); NEUTROPHILS % (AUTO) 77.3 %; PLT - PLATELET COUNT 184 10^3/uL (130-450); RED BLOOD COUNT 4.58 10^6/uL (4.20-5.40); RED CELL DISTRIBUTION WIDTH 15.3 % (12.0-15.0); WHITE BLOOD COUNT 11.9 x10^3/uL (4.8-10.8)
--- NOTE | 2022-10-06 11:26 | CONSULTATION NOTE ---
Consultation Report: consulted by Dr Fairbanks for CVL on a very ill patient in ED. See H&P for full workup. Upon assessment pt is obtunded and nonresponsive, tachycardic, tachypneic, hypertensive. Telephone consent obtained from daughter, although vascular access is deemed emergent by ED MD. Pt is known HD patient with fistula in LUE and dialsysis port in R chest. Consulted Dr. Warren (gen surgery), and she is aggreement that the only options of central access will be femoral CVL. R sided fem CVL attempted with US guidance, attempt abandoned due to inability to feed the guidewire past approx 5cm, upon review the vessel appears thrombosed under US. Attempt #2 in L femoral vein, vessel accessed by Dr. Warren, guidewire threaded easily, 7Fr 3-lumen CVL placed in L femoral, placement verified with US guidance, sterile technique maintained, all ports flush and aspirate easily, line secured with suture, biopatch placed, and sterile dressing applied. The as sistance of Dr. Warren is very much appreciated, and instrumental to the care of this patient.
--- NOTE | 2022-10-06 11:27 | ANESTHESIA PROCEDURE NOTE ---
Anesth Central Line Template - Central Line Central Line Preparation: Consent Obtained, Unable to obtain consent (see note. pt obtunded, emergency, but also spoke with daughter on the phone for telephone consent), Time out completed, Ultrasound used, Sterile prep and drape Central line location: Left Femoral Central line type: Triple lumen Central line catheter tip site resides: L femoral Central line aftercare: Chlorhexidine disc placed, Secured, Placement confirmed, No pneumothorax, No complications, Bundle checklist complete, Pt tolerated well
--- NOTE | 2022-10-06 11:33 | CONSULTATION NOTE ---
Referring Provider Name of Referring Provider:: Pauline Ryan [employer] Consult Date: 10/06/22 Chief Complaint - Chief Complaint Chief Complaint: central line History of Present Illness - Admitted From Admitted From:: ed - History of Present Illness HPI Comment/Other: I was consulted at the bedside to assist with central line. The patient is in the ED obtunded s/p seizure activity. She has multiple dialysis access points in bilateral upper chest/ extremities. No family at the bedside History - Past Medical History Cardiovascular: reports: Congestive heart failure, Hypertension Endocrine/Autoimmune: reports: Type 2 diabetes - Past Surgical History Other past surgical history: AV fistula - Family & Social History Living arrangement: At home Living Situation: With family Meds/Allgy - Home Medications Home Medications: Ambulatory Orders Medication Instructions Recorded Confirmed NIFEdipine [Procardia Xl] 30 mg PO BID 02/14/22 02/14/22 cloNIDine [Catapres] 0.3 mg PO BID 02/14/22 02/14/22 hydrALAZINE [Apresoline] 25 mg PO BID 02/14/22 02/14/22 - Allergies Allergies/Adverse Reactions: Allergies Allergy/AdvReac Type Severity Reaction Status Date / Time cough syrup Allergy Rash Uncoded 10/05/22 15:38 Exam - Vital Signs Vital Signs: Vital Signs x48h Temp Pulse Resp BP Pulse Ox O2 Flow Rate 10/06/22 11:00 101.7 F H 96 39 H 250/115 H 99 2 10/06/22 10:30 93 36 H 248/113 H 97 2 10/06/22 10:00 90 45 H 255/113 H 97 2 10/06/22 09:30 95 42 H 224/105 H 98 2 10/06/22 09:24 100.8 F H 10/06/22 09:12 94 43 H 247/115 H 97 10/06/22 08:00 88 34 H 225/128 H 97 10/06/22 07:41 72 21 224/107 H 94 3 10/06/22 06:30 81 19 217/104 H 92 2 10/06/22 06:00 70 94 H 224/103 H 16 L 2 10/06/22 05:30 67 16 197/92 H 94 10/06/22 05:00 64 32 H 191/101 H 96 10/06/22 04:30 64 20 192/94 H 99 2 10/06/22 04:20 71 24 206/72 H 99 2 10/06/22 04:00 93 35 H 227/101 H 99 10/06/22 03:48 97 32 H 228/95 H 97 2 - Physical Exam General Appearance: positive: Lethargic (right chest port. Palpable femoral pulses) Conclusion/Plan - Problem List (1) Sepsis Conclusion/Plan: I was at the bedside to assist with central line placement. Right femoral line attempted, the wire was not able to be passed. Left femoral line placed with US guidance. See anesthesia note for further details. Qualifiers: Sepsis type: sepsis due to unspecified organism Sepsis acute organ dysfunction status: unspecified Qualified Code(s): A41.9 - Sepsis, unspecified organism - Lab Results Fish Bones: 10/06/22 11:17 10/05/22 15:45
[2022-10-06 11:40] LABS: ALBUMIN 3.2 g/dL (3.2-5.5); ALBUMIN/GLOBULIN RATIO 0.8 (1.0-2.2); BILIRUBIN,TOTAL 1.3 mg/dL (0.2-1.0); CALCIUM 9.2 mg/dL (8.5-10.3); MAGNESIUM 2.5 mg/dL (1.7-2.8); TOTAL PROTEIN 7.4 g/dL (6.7-8.2)
[2022-10-06 11:43] LABS: CREATININE 10.9 mg/dL (0.4-1.0); POTASSIUM 7.9 mmol/L (3.5-5.0)
[2022-10-06] MEDS ORDERED: CALCIUM GLUC 1,000MG/50ML-NACL 1,000 MG/50 ML BAG IV STA (11:47)
[2022-10-06] MEDS ORDERED: ALBUTEROL NEB 2.5 MG/3 ML INH STA (11:47)
[2022-10-06] MEDS ORDERED: INSULIN REGULAR HUMAN 300 UNIT/3 ML VIAL IVP STA (11:48)
[2022-10-06] MEDS ORDERED: SODIUM BICARBONATE ABBOJECT 50 MEQ/50 ML SYRINGE IVP STA (11:48)
--- NOTE | 2022-10-06 12:46 | ED Physician Documentation ---
ED Addendum - Addendum Addendum: 10/06/22 12:40 I have been reevaluating and following the patient since change of shift this morning. She has remained hypertensive and actually increasingly. She did have IV access overnight but they are having difficulty drawing labs this morning. Consulted anesthesia for central line with concerns of her already having a fistula on the left and the hemodialysis port on the right. They opted for inguinal triple-lumen central line. We were able to draw morning labs which we re now midmorning. Showing an elevation of her creatinine consistent with dialysis. However now concerning is a potassium of 7.9. Her EKG showing peaked T waves consistent with that but there is no widening of the QRS per se. I disagree with the EKG report of acute ME and feel its hyperkalemia. She is given medications for the hyperkalemia including an albuterol inhaler nebulizer, calcium gluconate, insulin, bicarb. Her blood sugar was 192 so we will recheck the blood sugar in 30 minutes after the insulin. She remained hypertensive with blood pressure now approximately 2 30-2 50 systolic. I believe this is likely related to illness as well as her fluid overload. She does sound crackles in both bases. Her chest x-ray this morning shows increase in interstitial markings either consistent with pneumonia or CHF. I did start a nitroglycerin drip with a target of approximately 180 systolic or slightly under. Given concern for sepsis and some white cells on her CSF, I would not want to go lower as she may need an increased perfusion pressure. She also is likely hypertensive more chronically. At this point the patient remains a stable with heart rate in the 90s and oxygenation good on just cannula. She is protecting her airway. However the patient would have been due for dialysis today and is showing hyperkalemia and fluid overload. There had been no beds available at outlying facilities for transfer but at this point is becoming emergent. I talked with Dr. Rubio who is the emergency physician at [facility] and he accepts a direct ER to ER transfer due to the urgency developing. Critical care time: 55 minutes including reevaluation and starting initiating medications for acute urgencies of hyperkalemia and hypertension emergency. We also included emergent transfer and consultation with other facilities. Disposition: The patient is transferred to acute care hospital Diagnoses: 1. Sepsis 2. Pneumonia 3. Possible meningitis 4. Chronic renal failure 5. Hyperkalemia and fluid overload 6. Altered mental status 7. marked hypertension
[2022-10-06 14:20] VITALS: BP 188/100
[2022-10-06] MEDS ORDERED: CEFEPIME IV ONE (17:00)
[2022-10-06] MEDS ORDERED: SODIUM CHLORIDE 0.9% IV ONE (17:00)
== END 2022-10-06 14:00 | disposition short-term general hospital (02) ==
LOC: EDUNIT# → ED 15:33
DX: S09.90XA Unspecified injury of head, initial encounter (principal); W19.XXXA Unspecified fall, initial encounter; R56.9 Unspecified convulsions; R50.9 Fever, unspecified; A41.9 Sepsis, unspecified organism; J18.9 Pneumonia, unspecified organism; E87.5 Hyperkalemia; I13.2 Hypertensive heart and chronic kidney disease with heart failure and with stage 5 chronic kidney disease, or end stage renal disease; E11.22 Type 2 diabetes mellitus with diabetic chronic kidney disease; N18.6 End stage renal disease; I50.9 Heart failure, unspecified; Z99.2 Dependence on renal dialysis; Z20.822 Contact with and (suspected) exposure to COVID-19; Z79.899 Other long term (current) drug therapy
CPT/HCPCS: 36415; 51701; 62270; 70450; 71045; 71275; 72125; 80053; 80306; 80307; 81001; 82945; 83605; 83690; 83735; 84132; 84157; 85025; 85610; 85730; 87040; 87070; 87205; 87529; 87633; 89051; 93005; 94640; 96365; 96366; 96367; 96368; 96375; 96376; 99291; A9270; G0480; J0131; J0133; J1815; J2060; J3370; Q9967; 80320; 80329; 81003; 81599; 87086